=== PATIENT | male | born 1950 | race Caucasian/White ===

== ENCOUNTER 2016-05-12 21:32 | Inpatient (IN) | payer OTHER, MEDICAID ==
[2016-05-12] MEDS ORDERED: IPRATROPIUM/ALBUTEROL 3 ML DEYVIAL IH ONE (22:34)
[2016-05-12 22:41] LABS: ABSOLUTE NRBC COUNT 0.02 10^3/uL (0-0.01); ADD DIFF? YES; ADD MORPH? NO; ATYPICAL LYMPHOCYTE FLAG 10 (0-99); FRAGMENT RBC FLAG 0 (0-99); HEMATOCRIT 40.1 % (40.0-51.0); LIPEMIA HEMOLYSIS FLAG 90 (0-99); MEAN CELL HEMOGLOBIN 30.4 pg (27.9-34.1); MEAN CELL HEMOGLOBIN CONCENTR. 34.9 g/dL (32.4-36.7); MEAN PLATELET VOLUME 9.1 fL (8.7-11.7); NRBC-AUTO% 0.1 % (0.0-0.2); PLATELET CLUMPS FLAG 10 (0-99); PLATELET COUNT 390 10^3/uL (150-400); RED BLOOD CELL COUNT 4.61 10^6/uL (4.40-6.38)
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
[2016-05-12 22:48] LABS: ADD SCAN? NO; LEFT SHIFT FLG 300 (0-99)
[2016-05-12 22:55] LABS: ANION GAP 14 mEq/L (8-16); CALCIUM 8.2 mg/dL (8.5-10.4); CARBON DIOXIDE 22 mEq/l (22-31); CHLORIDE 91 mEq/L (97-110); CREATININE 1.2 mg/dL (0.7-1.3); GLOMERULAR FILTRATION RATE > 60; GLUCOSE 199 mg/dL (70-100); POTASSIUM 4.7 mEq/L (3.5-5.2); SODIUM 127 mEq/L (134-144)
[2016-05-12 23:10] LABS: ALANINE AMINOTRANSFERASE 36 IU/L (21-72); ALBUMIN 3.1 g/dL (3.5-5.0); ALKALINE PHOSPHATASE 132 IU/L (38-126); ASPARTATE AMINOTRANSFERASE 33 IU/L (17-59); BILIRUBIN,TOTAL 0.8 mg/dL (0.1-1.4); BILIRUBIN-CONJUGATED 0.7 mg/dL (0.0-0.5); BILIRUBIN-UNCONJUGATED 0.1 mg/dL (0.0-1.1); ETHANOL SERUM < 10 mg/dL (0-10); MAGNESIUM 2.4 mg/dL (1.6-2.3); TOTAL PROTEIN 6.3 g/dL (6.3-8.2)
--- NOTE | 2016-05-12 23:19 | DX ---
AP and lateral chest x-ray 20 to 35 hours. History: Difficulty breathing. Productive cough. Chest pain. Findings: Heart size and pulmonary vasculature are normal. There is moderate consolidation/pneumonia left lower lobe with patchy infiltrates involving perihilar region bilaterally. There may be small le ft effusion. Osseous structures are intact. Impression: Moderate consolidation/pneumonia left lower lobe with patchy perihilar infiltrates.
[2016-05-12 23:24] LABS: PLATELET ESTIMATE ADEQUATE (ADEQ)
[2016-05-12 23:25] LABS: POLYCHROMASIA 1+
[2016-05-12 23:26] LABS: SCHISTOCYTES 1+
[2016-05-12] MEDS ORDERED: PIPERACILLIN/TAZO 4.5 GM/DEX 100 ML IV ONE (23:34)
[2016-05-12] MEDS ORDERED: oxyCODONE IR 5 MG TAB PO PRN (23:43)
[2016-05-12] MEDS ORDERED: ONDANSETRON 4 MG/2 ML VIAL IVP PRN (23:43)
[2016-05-12] MEDS ORDERED: ONDANSETRON DISINTEGRATING 4 MG TAB PO PRN (23:43)
[2016-05-12] MEDS ORDERED: VANCOMYCIN 1.5 GM in NS 500 ML IV ONE (23:46)
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
[2016-05-13] MEDS: NS 1,000 ML IV SCH ×2 (01:18→12:16)
[2016-05-13] MEDS: AZITHROMYCIN IV 500 MG in D5W 250 ML IV SCH ×3 (01:19→19:40)
[2016-05-13] MEDS: VANCOMYCIN HCL/NORMAL SALINE 250 ML IV SCH ×2 (01:22→13:32)
[2016-05-13] MEDS: guaiFENesin 600 MG TAB.ER PO SCH ×3 (01:31→19:43)
[2016-05-13] MEDS: ACETAMINOPHEN 325 MG TAB PO PRN (01:31)
[2016-05-13 05:45] LABS: ADD DIFF? YES; ADD MORPH? NO; ATYPICAL LYMPHOCYTE FLAG 10 (0-99); FRAGMENT RBC FLAG 0 (0-99); HEMATOCRIT 36.2 % (40.0-51.0); HEMOGLOBIN 12.6 g/dL (13.7-17.5); LIPEMIA HEMOLYSIS FLAG 90 (0-99); MEAN CELL HEMOGLOBIN 30.7 pg (27.9-34.1); MEAN CELL HEMOGLOBIN CONCENTR. 34.8 g/dL (32.4-36.7); MEAN CELL VOLUME 88.3 fL (81.5-99.8); MEAN PLATELET VOLUME 9.1 fL (8.7-11.7); PLATELET CLUMPS FLAG 0 (0-99); PLATELET COUNT 384 10^3/uL (150-400); RED CELL DISTRIBUTION WIDTH 14.1 % (11.5-15.2)
[2016-05-13] MEDS: IPRATROPIUM/ALBUTEROL 3 ML DEYVIAL IH SCH ×5 (05:45→21:42)
[2016-05-13 05:48] LABS: ADD SCAN? NO; LEFT SHIFT FLG 300 (0-99)
[2016-05-13] MEDS: PIPERACILLIN/TAZO 4.5 GM/DEX 100 ML IV SCH ×3 (05:58→21:53)
[2016-05-13 06:42] LABS: ALANINE AMINOTRANSFERASE 33 IU/L (21-72); ALBUMIN 2.4 g/dL (3.5-5.0); ALKALINE PHOSPHATASE 132 IU/L (38-126); ANION GAP 11 mEq/L (8-16); ASPARTATE AMINOTRANSFERASE 37 IU/L (17-59); BILIRUBIN,TOTAL 0.5 mg/dL (0.1-1.4); CALCIUM 7.6 mg/dL (8.5-10.4); CARBON DIOXIDE 24 mEq/l (22-31); CHLORIDE 92 mEq/L (97-110); CREATININE 1.1 mg/dL (0.7-1.3); GLOMERULAR FILTRATION RATE > 60; GLUCOSE 148 mg/dL (70-100); POTASSIUM 4.3 mEq/L (3.5-5.2); SODIUM 127 mEq/L (134-144); TOTAL PROTEIN 5.4 g/dL (6.3-8.2)
[2016-05-13 06:44] LABS: ECHINOCYTES 1+; PLATELET ESTIMATE ADEQUATE (ADEQ); TOXIC GRANULATION PRESENT
[2016-05-13] MEDS: ENOXAPARIN 40 MG/0.4 ML SYR SC SCH (10:02)
--- NOTE | 2016-05-13 20:16 | HOSPPROG ---
Hospitalist Progress Note Assessment/Plan: HCAP Acute Resp Failure, on O2 Sepsis Dehydration, improved Malnutrition, moderate Hyperglycemia Hyponatremia Homelessness L finger recent infection Confusion, improved -IV Abx, IV fluid. -Cultures pending. -Duonebs/O2. -Start CPT - let pt decide which method he likes best. Recommended flutter valve. -ISU. -May add mucolytics if needed. -VTE ppx - Lovenox. -Code status - full. Subjective: Pt c/o persistent cough, productive of sputum. Very congested. denies CP. Has some SOB still. Objective: Vital Signs Temp Pulse Resp BP Pulse Ox 36.7 C 100 17 132/74 H 95 05/13/16 20:02 05/13/16 20:02 05/13/16 20:02 05/13/16 20:02 05/13/16 20:02 Microbiology 05/13/16 06:05 - Final Sputum, Induced/Suctioned Laboratory Results 05/13/16 03:48 05/13/16 03:48 05/12/16 05/13/16 05/14/16 05:59 05:59 05:59 Intake Total 1999 2506 Output Total 500 1350 Balance 1500 1156 General: The patient is an Elderly male who is A&Ox3 and in no acute distress. HEENT: normocephalic, extraocular movements intact, conjunctivae clear. Nares and oral mucosa pink and moist. Neck: trachea midline, no visible masses, no external lesions. CV: +S1/S2, tachy rate and reg rhythm. No murmurs/rubs/gallops. Resp: mildly labored breathing, bilateral +rales, rhonchi worse on L side than R side. No wheeze. Abd: soft and nondistended, bowel sounds present. Nontender to palpation throughout. Musculoskeletal: 4/5 muscle strength bilateral upper and lower extremities. Neuro: cranial nerves II XII grossly intact. Intact gross motor and sensory function. Psych: appropriate mood/affect. Skin: No rash. +scaly healing skin on L index finger w/ a small brown eschar. : +mild L flank tenderness. Heme/lymph: No peripheral edema. - Pending Discharge Pending Discharge Within 24 Hours: No Pending Discharge Within 48 Hours: No ICD10 Worksheet Patient Problems: Problems Problem Status Diagnosed Cellulitis Acute
[2016-05-14] MEDS: VANCOMYCIN HCL/NORMAL SALINE 250 ML IV SCH ×2 (01:17→14:04)
[2016-05-14] MEDS: IPRATROPIUM/ALBUTEROL 3 ML DEYVIAL IH SCH ×4 (05:25→22:11)
[2016-05-14] MEDS: PIPERACILLIN/TAZO 4.5 GM/DEX 100 ML IV SCH ×3 (06:20→21:50)
[2016-05-14] MEDS: ENOXAPARIN 40 MG/0.4 ML SYR SC SCH (08:07)
[2016-05-14] MEDS: guaiFENesin 600 MG TAB.ER PO SCH ×2 (08:07→20:00)
--- NOTE | 2016-05-14 10:17 | HOSPPROG ---
Hospitalist Progress Note Assessment/Plan: * healthcare associated pneumonia * will continue vanc and Zosyn for now * check CBC today *Acute hypoxic Resp Failure * improving *Sepsis - resolved Dehydration, improved Malnutrition, moderate Hyperglycemia Hyponatremia Homelessness L finger recent infection Confusion, improved Subjective: Feels a little better. Still coughing. Having pleuritic chest pain Objective: Vital Signs Temp Pulse Resp BP Pulse Ox 36.6 C 92 18 130/77 H 98 05/14/16 03:17 05/14/16 08:08 05/14/16 08:08 05/14/16 08:08 05/14/16 08:08 Microbiology 05/13/16 06:05 - Final Sputum, Induced/Suctioned Laboratory Results 05/13/16 03:48 05/13/16 03:48 05/13/16 05/14/16 05/15/16 05:59 05:59 05:59 Intake Total 2000 4006 Output Total 500 1650 Balance 1500 2356 - Physical Exam Constitutional: no apparent distress, appears nourished, not in pain Eyes: anicteric sclera, EOMI Ears, Nose, Mouth, Throat: moist mucous membranes, hearing normal, ears appear normal Cardiovascular: regular rate and rhythym, no murmur, rub, or gallop Respiratory: no respiratory distress, rhonchi ( left lung) Gastrointestinal: normoactive bowel sounds, soft, non-tender abdomen, no palpable masses Skin: warm Psychiatric: interacting appropriately, not anxious, not encephalopathic, thought process linear ICD10 Worksheet Patient Problems: Problems Problem Status Diagnosed Cellulitis Acute
[2016-05-14 11:41] LABS: ADD DIFF? YES; ADD MORPH? NO; ATYPICAL LYMPHOCYTE FLAG 40 (0-99); FRAGMENT RBC FLAG 0 (0-99); HEMATOCRIT 33.2 % (40.0-51.0); HEMOGLOBIN 11.5 g/dL (13.7-17.5); LIPEMIA HEMOLYSIS FLAG 90 (0-99); MEAN CELL HEMOGLOBIN 30.7 pg (27.9-34.1); MEAN CELL HEMOGLOBIN CONCENTR. 34.6 g/dL (32.4-36.7); MEAN CELL VOLUME 88.8 fL (81.5-99.8); MEAN PLATELET VOLUME 8.6 fL (8.7-11.7); PLATELET CLUMPS FLAG 0 (0-99); PLATELET COUNT 428 10^3/uL (150-400); RED BLOOD CELL COUNT 3.74 10^6/uL (4.40-6.38); RED CELL DISTRIBUTION WIDTH 14.4 % (11.5-15.2)
[2016-05-14 11:48] LABS: LEFT SHIFT FLG 110 (0-99)
[2016-05-14 12:13] LABS: ANION GAP 6 mEq/L (8-16); CARBON DIOXIDE 29 mEq/l (22-31); CHLORIDE 99 mEq/L (97-110); CREATININE 0.7 mg/dL (0.7-1.3); GLOMERULAR FILTRATION RATE > 60; GLUCOSE 121 mg/dL (70-100); POTASSIUM 4.2 mEq/L (3.5-5.2); SODIUM 134 mEq/L (134-144)
[2016-05-14 12:55] LABS: PLATELET ESTIMATE INCREASED (ADEQ)
[2016-05-14] MEDS: NS 1,000 ML IV SCH (13:17)
[2016-05-14] MEDS: AZITHROMYCIN IV 500 MG in D5W 250 ML IV SCH (19:59)
[2016-05-15] MEDS: VANCOMYCIN HCL/NORMAL SALINE 250 ML IV SCH (04:26)
[2016-05-15 05:18] LABS: ADD DIFF? YES; ADD MORPH? NO; ADD SCAN? NO; ATYPICAL LYMPHOCYTE FLAG 70 (0-99); FRAGMENT RBC FLAG 40 (0-99); HEMATOCRIT 31.5 % (40.0-51.0); HEMOGLOBIN 10.7 g/dL (13.7-17.5); LEFT SHIFT FLG 90 (0-99); LIPEMIA HEMOLYSIS FLAG 90 (0-99); MEAN CELL HEMOGLOBIN 30.6 pg (27.9-34.1); MEAN PLATELET VOLUME 8.5 fL (8.7-11.7); PLATELET CLUMPS FLAG 0 (0-99); PLATELET COUNT 555 10^3/uL (150-400); RED CELL DISTRIBUTION WIDTH 14.6 % (11.5-15.2)
[2016-05-15 05:28] LABS: ANION GAP 6 mEq/L (8-16); CALCIUM 7.5 mg/dL (8.5-10.4); CARBON DIOXIDE 31 mEq/l (22-31); CHLORIDE 101 mEq/L (97-110); CREATININE 0.7 mg/dL (0.7-1.3); GLOMERULAR FILTRATION RATE > 60; GLUCOSE 113 mg/dL (70-100); SODIUM 138 mEq/L (134-144)
[2016-05-15] MEDS: IPRATROPIUM/ALBUTEROL 3 ML DEYVIAL IH SCH ×4 (05:41→23:05)
[2016-05-15] MEDS: PIPERACILLIN/TAZO 4.5 GM/DEX 100 ML IV SCH (06:24)
[2016-05-15 06:46] LABS: PLATELET ESTIMATE INCREASED (ADEQ)
[2016-05-15] MEDS: ENOXAPARIN 40 MG/0.4 ML SYR SC SCH (08:06)
[2016-05-15] MEDS: guaiFENesin 600 MG TAB.ER PO SCH ×2 (08:06→20:14)
[2016-05-15] MEDS: AZITHROMYCIN 250 MG TAB PO SCH (13:33)
--- NOTE | 2016-05-15 13:47 | HOSPPROG ---
Hospitalist Progress Note Assessment/Plan: * healthcare associated pneumonia * compared out antibiotics ceftriaxone and azithromycin * recheck chest x-ray tomorrow *Acute hypoxic Resp Failure * still requiring large amount of oxygen *Sepsis - resolved Dehydration, improved Malnutrition, moderate Hyperglycemia Hyponatremia Homelessness L finger recent infection Confusion, improved Subjective: slow improvement. productive cough with purulent sputum. some left- sided pleuritic chest pain Objective: Vital Signs Temp Pulse Resp BP Pulse Ox 36.9 C 98 22 H 138/80 H 82 L 05/15/16 11:54 05/15/16 12:22 05/15/16 12:22 05/15/16 11:54 05/15/16 12:22 Microbiology 05/13/16 06:05 - Final Sputum, Induced/Suctioned Sputum Culture - Final Laboratory Results 05/15/16 04:39 05/15/16 04:39 05/14/16 05/15/16 05/16/16 05:59 05:59 05:59 Intake Total 4006 2050 Output Total 1650 2800 Balance 2356 -750 - Physical Exam Constitutional: no apparent distress, appears nourished, not in pain Eyes: anicteric sclera, EOMI Ears, Nose, Mouth, Throat: moist mucous membranes, hearing normal, ears appear normal Respiratory: no respiratory distress, rhonchi ( left base) Neurologic: AAOx3 Psychiatric: interacting appropriately, not anxious, not encephalopathic, thought process linear ICD10 Worksheet Patient Problems: Problems Problem Status Diagnosed Cellulitis Acute
[2016-05-16] MEDS: IPRATROPIUM/ALBUTEROL 3 ML DEYVIAL IH SCH ×4 (05:56→21:59)
[2016-05-16 06:38] LABS: ADD DIFF? YES; ADD MORPH? NO; ATYPICAL LYMPHOCYTE FLAG 50 (0-99); FRAGMENT RBC FLAG 0 (0-99); HEMATOCRIT 31.5 % (40.0-51.0); HEMOGLOBIN 10.9 g/dL (13.7-17.5); LIPEMIA HEMOLYSIS FLAG 90 (0-99); MEAN CELL HEMOGLOBIN 30.4 pg (27.9-34.1); MEAN CELL HEMOGLOBIN CONCENTR. 34.6 g/dL (32.4-36.7); MEAN PLATELET VOLUME 8.4 fL (8.7-11.7); PLATELET CLUMPS FLAG 20 (0-99); PLATELET COUNT 546 10^3/uL (150-400); RED BLOOD CELL COUNT 3.58 10^6/uL (4.40-6.38); RED CELL DISTRIBUTION WIDTH 14.3 % (11.5-15.2)
[2016-05-16 06:39] LABS: ADD SCAN? NO; LEFT SHIFT FLG 110 (0-99)
[2016-05-16 06:46] LABS: ANION GAP 8 mEq/L (8-16); CALCIUM 8.4 mg/dL (8.5-10.4); CARBON DIOXIDE 33 mEq/l (22-31); CHLORIDE 97 mEq/L (97-110); CREATININE 0.7 mg/dL (0.7-1.3); GLOMERULAR FILTRATION RATE > 60; GLUCOSE 98 mg/dL (70-100); POTASSIUM 4.2 mEq/L (3.5-5.2); SODIUM 138 mEq/L (134-144)
[2016-05-16 07:42] LABS: PLATELET ESTIMATE INCREASED (ADEQ)
[2016-05-16 07:43] LABS: MACROCYTES 1+
[2016-05-16] MEDS: guaiFENesin 600 MG TAB.ER PO SCH ×2 (08:36→21:22)
[2016-05-16] MEDS: AZITHROMYCIN 250 MG TAB PO SCH (08:36)
[2016-05-16] MEDS: ENOXAPARIN 40 MG/0.4 ML SYR SC SCH (08:36)
--- NOTE | 2016-05-16 08:53 | DX ---
Single Frontal Chest May 16, 2016 Indication: Follow up pneumonia. Comparison: May 12, 2016. Findings: Heart size remains normal. There is some interval progression of the moderate consolidative changes of the left lower lobe compared to 4 days prior. Impression: Evolving left lower lobe infiltrate slightly worse than 4 days prior.
--- NOTE | 2016-05-16 16:44 | HOSPPROG ---
Hospitalist Progress Note Assessment/Plan: * healthcare associated pneumonia * continue ceftriaxone and azithromycin, had been on Zosyn and vancomycin but switched yesterday * chest x-ray shows stable infiltrates *Acute hypoxic Resp Failure * still requiring large amount of oxygen * will need this to wean for discharge * he is homeless *Sepsis - resolved Dehydration, improved Malnutrition, moderate Hyperglycemia Hyponatremia Homelessness L finger recent infection Confusion, improved Subjective: Breathing feels better. Objective: Vital Signs Temp Pulse Resp BP Pulse Ox 36.8 C 100 18 155/89 H 92 05/16/16 12:40 05/16/16 12:40 05/16/16 12:40 05/16/16 12:40 05/16/16 12:40 Laboratory Results 05/16/16 05:35 05/16/16 05:35 05/15/16 05/16/16 05/17/16 05:59 05:59 05:59 Intake Total 2049 Output Total 2800 450 1300 Balance -750 -450 -1300 - Physical Exam Constitutional: no apparent distress, appears nourished, not in pain Eyes: anicteric sclera, EOMI Ears, Nose, Mouth, Throat: moist mucous membranes, hearing normal Cardiovascular: regular rate and rhythym, no murmur, rub, or gallop Respiratory: no respiratory distress, expiratory wheeze, inspiratory crackles ( Left base) Gastrointestinal: normoactive bowel sounds, soft, non-tender abdomen, no palpable masses Neurologic: AAOx3 Psychiatric: interacting appropriately, not anxious, not encephalopathic, thought process linear ICD10 Worksheet Patient Problems: Problems Problem Status Diagnosed Cellulitis Acute
[2016-05-16] MEDS: TEMAZEPAM 15 MG CAP PO PRN (21:22)
[2016-05-17] MEDS: IPRATROPIUM/ALBUTEROL 3 ML DEYVIAL IH SCH ×3 (05:22→17:46)
[2016-05-17] MEDS: AZITHROMYCIN 250 MG TAB PO SCH (08:11)
[2016-05-17] MEDS: ENOXAPARIN 40 MG/0.4 ML SYR SC SCH (08:12)
[2016-05-17] MEDS: guaiFENesin 600 MG TAB.ER PO SCH ×2 (08:12→19:43)
[2016-05-17] MEDS: ACETAMINOPHEN 325 MG TAB PO PRN (08:12)
--- NOTE | 2016-05-17 09:51 | HOSPPROG ---
Hospitalist Progress Note Assessment/Plan: * healthcare associated pneumonia * continue ceftriaxone and azithromycin, had been on Zosyn and vancomycin but switched 05/15 * chest x-ray which i personally reviewed and interpreted shows worsening LLL infiltrates *Acute hypoxic Resp Failure (not improving) * still requiring large amount of oxygen * will need this to wean for discharge * he is homeless * will consider repeating cxr on 05/18 if not improving to eval for developing effusion *Sepsis - resolved Dehydration, improved Malnutrition, moderate Hyperglycemia Hyponatremia Homelessness L finger recent infection Confusion, improved Subjective: continues to have sob and cough. not feeling well Objective: Vital Signs Temp Pulse Resp BP Pulse Ox 36.6 C 98 20 130/80 H 84 L 05/17/16 08:20 05/17/16 08:20 05/17/16 08:20 05/17/16 08:20 05/17/16 08:20 Laboratory Results 05/16/16 05:35 05/16/16 05:35 05/16/16 05/17/16 05/18/16 05:59 05:59 05:59 Intake Total 1250 Output Total 450 2890 Balance -450 -1640 gen nad pulm rochi left lower lobe with dullness to percussion abd soft cv rrr ICD10 Worksheet Patient Problems: Problems Problem Status Diagnosed Cellulitis Acute
[2016-05-17] MEDS: IBUPROFEN 600 MG TAB PO PRN (19:43)
[2016-05-18] MEDS: IPRATROPIUM/ALBUTEROL 3 ML DEYVIAL IH SCH ×5 (00:04→22:38)
[2016-05-18] MEDS: ENOXAPARIN 40 MG/0.4 ML SYR SC SCH (08:37)
[2016-05-18] MEDS: guaiFENesin 600 MG TAB.ER PO SCH ×2 (08:38→21:08)
[2016-05-18] MEDS: AZITHROMYCIN 250 MG TAB PO SCH (08:38)
--- NOTE | 2016-05-18 10:50 | HOSPPROG ---
Hospitalist Progress Note Assessment/Plan: * healthcare associated pneumonia (improving) bust still req supplemental o2 on abx d#6 * continue ceftriaxone and azithromycin, had been on Zosyn and vancomycin but switched 05/15 *Acute hypoxic Resp Failure (not improving) * still requiring large amount of oxygen * will need this to wean for discharge * he is homeless *Sepsis - resolved Dehydration, improved Malnutrition, moderate L finger recent infection Confusion, improved dispo: will dc abx tomorrow Subjective: improving work of breathing. still with sob. improving productive cough. no fever or chills Objective: Vital Signs Temp Pulse Resp BP Pulse Ox 36.8 C 93 18 121/69 H 91 L 05/18/16 08:00 05/18/16 08:00 05/18/16 08:00 05/18/16 08:00 05/18/16 08:00 Laboratory Results 05/16/16 05:35 05/16/16 05:35 05/17/16 05/18/16 05/19/16 05:59 05:59 05:59 Intake Total 1250 750 Output Total 2890 1200 400 Balance -1640 -450 -400 - Physical Exam Constitutional: no apparent distress, appears nourished, not in pain Cardiovascular: regular rate and rhythym, no murmur, rub, or gallop Respiratory: no respiratory distress, no rales or rhonchi, rhonchi (left sided) , No dullness to percussion Gastrointestinal: normoactive bowel sounds, soft, non-tender abdomen, no palpable masses Neurologic: AAOx3, sensation intact bilaterally ICD10 Worksheet Patient Problems: Problems Problem Status Diagnosed Cellulitis Acute
[2016-05-18 11:16] LABS: ADD DIFF? YES; ADD MORPH? NO; ATYPICAL LYMPHOCYTE FLAG 40 (0-99); FRAGMENT RBC FLAG 0 (0-99); HEMATOCRIT 35.6 % (40.0-51.0); HEMOGLOBIN 12.1 g/dL (13.7-17.5); LIPEMIA HEMOLYSIS FLAG 90 (0-99); MEAN CELL HEMOGLOBIN 30.3 pg (27.9-34.1); MEAN CELL VOLUME 89.2 fL (81.5-99.8); MEAN PLATELET VOLUME 8.2 fL (8.7-11.7); PLATELET CLUMPS FLAG 20 (0-99); PLATELET COUNT 629 10^3/uL (150-400); RED BLOOD CELL COUNT 3.99 10^6/uL (4.40-6.38); RED CELL DISTRIBUTION WIDTH 14.2 % (11.5-15.2)
[2016-05-18 11:17] LABS: ADD SCAN? NO; LEFT SHIFT FLG 140 (0-99)
[2016-05-18 12:08] LABS: PLATELET ESTIMATE INCREASED (ADEQ); POLYCHROMASIA 1+; TOXIC GRANULATION PRESENT
[2016-05-18] MEDS: IBUPROFEN 600 MG TAB PO PRN (21:08)
[2016-05-18] MEDS: TEMAZEPAM 15 MG CAP PO PRN (21:08)
[2016-05-19] MEDS: IPRATROPIUM/ALBUTEROL 3 ML DEYVIAL IH SCH ×4 (06:01→23:31)
[2016-05-19] MEDS: guaiFENesin 600 MG TAB.ER PO SCH ×2 (09:22→21:31)
[2016-05-19] MEDS: ENOXAPARIN 40 MG/0.4 ML SYR SC SCH (09:22)
[2016-05-19] MEDS: AZITHROMYCIN 250 MG TAB PO SCH (09:22)
--- NOTE | 2016-05-19 10:30 | HOSPPROG ---
Hospitalist Progress Note Assessment/Plan: * healthcare associated pneumonia (improving) but still req supplemental o2 * dc antibiotics * repeat cxr to eval for effusion given persistent hypoxemia *Acute hypoxic Resp Failure (not improving) * still requiring large amount of oxygen * will need this to wean for discharge * he is homeless *Sepsis - resolved Dehydration, improved Malnutrition, moderate L finger recent infection Confusion, improved dispo: dc with home o2 once arrangements are in place Subjective: still with shortness of breath. denies fever or chills Objective: Vital Signs Temp Pulse Resp BP Pulse Ox 36.3 C 94 17 107/79 95 05/19/16 08:01 05/19/16 08:01 05/19/16 08:01 05/19/16 08:01 05/19/16 08:01 Laboratory Results 05/18/16 11:07 05/16/16 05:35 05/18/16 05/19/16 05/20/16 05:59 05:59 05:59 Intake Total 750 2200 Output Total 1200 1200 Balance -450 1000 - Physical Exam Constitutional: no apparent distress, appears nourished, not in pain Cardiovascular: regular rate and rhythym, no murmur, rub, or gallop Respiratory: no respiratory distress, rhonchi (left lung field), No expiratory wheeze, No dullness to percussion Gastrointestinal: normoactive bowel sounds, soft, non-tender abdomen, no palpable masses ICD10 Worksheet Patient Problems: Problems Problem Status Diagnosed Cellulitis Acute
--- NOTE | 2016-05-19 12:21 | DX ---
Portable Chest May 19, 2016 at 1143 Hours History: Pneumonia. Hypoxia. Comparison: May 16, 2016. Findings: Decreasing left lower lobe alveolar opacity consistent with improvement in left lower lobe pneumonia. Right lung is clear. Heart is normal in size. No pleural effusion or pneumothorax. Impression: Improving left lower lobe pneumonia.
[2016-05-19] MEDS: IBUPROFEN 600 MG TAB PO PRN (12:45)
[2016-05-19] MEDS: TEMAZEPAM 15 MG CAP PO PRN (21:30)
[2016-05-20] MEDS: IPRATROPIUM/ALBUTEROL 3 ML DEYVIAL IH SCH ×2 (06:23→12:18)
[2016-05-20] MEDS: ENOXAPARIN 40 MG/0.4 ML SYR SC SCH (08:11)
[2016-05-20] MEDS: guaiFENesin 600 MG TAB.ER PO SCH (08:11)
[2016-05-20] MEDS: IBUPROFEN 600 MG TAB PO PRN (08:13)
[2016-05-20 11:15] VITALS: BP 102/66; TEMP 97.3
[2016-05-20 12:28] VITALS: PULSE 91; RESP 16; O2SAT 96
--- NOTE | 2016-05-20 12:53 | PDIAF ---
- Diagnosis Diagnosis: pneumonia Code Status: Full Code - Medication Management Discharge Medications: Medications to Continue on Transfer Acetaminophen [Tylenol 325mg (*)] 650 mg PO Q4HRS PRN #0 tab 04/16/16 [Last Taken Unknown] Ibuprofen [Motrin (*)] 600 mg PO Q6HRS PRN #0 tab 04/16/16 [Last Taken Unknown] Acetaminophen [Tylenol 325mg (*)] 650 mg PO Q4HRS PRN #0 tab 05/20/16 [Last Taken Unknown] guaiFENesin [Mucinex 600 MG (*)] 1,200 mg PO BID #14 tab.er 05/20/16 [Last Taken Unknown] Discharge Medications: Refer to the Discharge Home Medication list for PRN reason. - Orders Services needed: Registered Nurse, Physical Therapy, Occupational Therapy - Follow Up Care Current Providers and Referrals: [place],. [Primary Care Provider] -
--- NOTE | 2016-05-20 14:46 | GDS ---
[f rep st] DISCHARGE SUMMARY DISCHARGE DIAGNOSES: 1. Healthcare-associated pneumonia. 2. Resolved sepsis. 3. Acute respiratory failure due to above. 4. Homelessness. 5. Resolved delirium. 6. Moderate malnutrition. HOSPITAL COURSE AND STAY BY PROBLEM: Healthcare-associated pneumonia: The patient was admitted to [facility] where he was initially treated for healthcare-associated pneumonia with vancomycin and Zo syn. These antibiotics were changed to ceftriaxone and azithromycin on 05/16/2016. Over the past fe w days, the patient's symptoms of pneumonia have improved. He has been afebrile. He has continued t o require oxygen. A repeat chest x-ray done on 05/19/2016 showed improvement of his left lower lobe infiltrate without effusion. On day of discharge, the patient has finished an 8-day course of IV antibiotics and does not appear t o be infected at this point. He is going to require further nursing care, given his homeless status and persistent requirement for supplemental oxygen. DISCHARGE PHYSICAL EXAM: VITAL SIGNS: Blood pressure 102/66, pulse of 92, respiratory rate 20, O2 s aturation 90% on 4 L, temperature afebrile. GENERAL: In no acute distress. LUNGS: Improving rhonc hi left base. CURRENT LABS AND STUDIES: Chest x-ray done on 05/19/2016: Refer to report. DISCHARGE MEDICATIONS: Please refer to transfer summary in [facility]. DISCHARGE INSTRUCTIONS: The patient will be transferred to a senior living facility for further re habilitation. /[id number]/MODL
== END 2016-05-20 14:32 | DRG 871 ==
LOC: EDUNIT# → F2W 05-13 00:43 → F1N 05-15 18:17
PROVIDERS: ADMIT Student in an Organized Health Care Education/Training Program; ATTEND Student in an Organized Health Care Education/Training Program
DX: A41.9 Sepsis, unspecified organism (principal); J18.8 Other pneumonia, unspecified organism; J96.01 Acute respiratory failure with hypoxia; E44.0 Moderate protein-calorie malnutrition; E87.1 Hypo-osmolality and hyponatremia; M10.9 Gout, unspecified; F20.9 Schizophrenia, unspecified; E86.0 Dehydration; Z59.0 Homelessness; Z72.0 Tobacco use
CPT/HCPCS: 97001-GP; 97116-GP; 97530-GP; G0477; G0480; G8978-GP-CJ; G8979-GP-CI; J0456; J0696; J1650; J2543; J3370

== ENCOUNTER 2018-07-24 15:11 | Emergency (ER) | payer MEDICAID, OTHER ==
--- NOTE | 2018-07-24 15:32 | EDPHY ---
General - History Smoking Status: Current some day smoker Time Seen by Provider: 07/24/18 15:32 Narrative: CLINICAL IMPRESSION: Multiple open wounds of the right lower extremity, cellulitis ASSESSMENT/PLAN: Patient is a 67-year-old male who is currently homeless who presents for concerns of wound infection. Patient is afebrile and not toxic appearing, no acute distress. Physical exam reveals generalized right lower extremity edema with multiple open wounds and associated cellulitis. He has had no systemic symptoms, his vital signs were reviewed and I do not suspect sepsis. Ultrasound was ordered and still pending for further evaluation of DVT. There was no evidence of systemic infection, abscess, necrotizing skin infection or deep space infection. Case management was consulted, they also evaluated this patient. His tetanus status was updated in the emergency department. He was given his 1st dose of Bactrim and will continue for the next 10 days. He was given Benadryl for his pruritic rash. There were no findings to suggest anaphylaxis, SJS/TENS, Harleen or scabies. Dispo still pending at this time, Dr. Canada will resume care of this patient. DIFFERENTIAL DX: Differential diagnosis including but not limited to and in no particular order cellulitis, venous stasis, stasis ulcer, DVT, necrotizing skin infection, deep space infection ED COURSE: 1549: Case discussed with Dr. Canada. 1557: Dr. Canada will resume care of this patient at this time. Ultrasound is still pending. Patient also needs to be seen by case management. CHIEF COMPLAINT: Right lower extremity open wounds and pain HPI: Patient is a 67-year-old male who is currently homeless living in the longterm who presents to the emergency department with multiple right lower extremity wounds, redness and swelling. Patient reports over the last 3 months he has developed some wounds on his right lower extremity, he feels that they are getting better however they are not healing. Recently has noted some associated redness and new onset right lower extremity edema. He does report that they are painful in nature. He denies any traumatic injury. He denies any fevers, chest pain or shortness of breath. Appetite has been normal. He has been trying to clean the areas as much as he can. He also complains of a rash that he has had for the last several months on his torso and upper legs. It is very itchy in nature. He has not tried anything for the itching. He was established with the wound clinic several years prior for a hand infection, went there prior to arrival and was sent here for further evaluation. PMH: Head injury Pertinent Past Surgical History: Right knee surgery, had surgery from hockey injury Family History: Noncontributory Social History: Occasional smoker, occasional marijuana, denies alcohol REVIEW OF SYSTEMS: All other systems negative Constitutional: Chilled. No fever, appetite change. Eyes: No discharge, vision change ENT: No sore throat, congestion, ear pain. Cardiovascular: No chest pain, no palpitations. Respiratory: No cough, no shortness of breath. Gastrointestinal: No abdominal pain, no vomiting, diarrhea. Genitourinary: No hematuria, dysuria, flank pain, pelvic pain Musculoskeletal: Right lower extremity pain, swelling and open wounds. Skin: Open wounds right lower extremity. Neurological: No headache, dizziness, weakness. PHYSICAL EXAM: General Appearance: Unkempt, well-appearing and in no acute distress. HENT: Normocephalic, atraumatic. Bilateral external ears are normal. Bilateral tympanic membranes are normal with pearly natarajan reflex. Nares are clear, mucosa is pink. Oropharynx is clear, uvula is midline. There is no tonsillar enlargement or exudate. Poor dentition. Eyes: PERRLA, EOMI intact. Conjunctiva pink, no pallor or injection Neck: Supple, nontender, no lymphadenopathy, no midline pain, FROM, no meningismus. Respiratory: There are no retractions, lungs are clear to auscultation. Cardiac: Regular rate and rhythm, no murmurs or gallops. Gastrointestinal: Abdomen is soft, nontender, bowel sounds normal, no masses/ hernia, no rigidity, guarding or focal peritoneal findings. Neurological: Alert and oriented x 3, CN 2-12 grossly intact, normal gait no ataxia, DTR's intact, normal sensation and strength Skin: Warm, dry. Patient with mildly raised, hyperemic pruritic rash along torso and upper legs. There is no abdominal rash, inter digital or intertriginous rash. Upper Extremities: Intact distal pulses, Full range of motion intact, no tenderness, no ecchymosis or edema Lower Extremities: Left lower extremity with notable varicosities, no evidence of venous stasis or open wounds. Intact distal pulses, No edema, No tenderness , No cyanosis, full range of motion intact. Right lower extremity with a large varicosities, multiple (3) open wounds on the anterior aspect distal to the knee. Largest approximately 2 cm on the anterior mid paitño with ulceration. All 3 wounds have surrounding erythema and are tender to palpation. There is notable right lower extremity edema and calf tenderness on the right side. He has an additional open wound on the posterior right thigh. Psychiatric: Patient is oriented X 3, there is no agitation. MEDICAL DECISION MAKING: Patient was seen independently. Secondary supervising physician at time of evaluation was Dr. Canada. Diagnosis: Open wounds, right lower extremity cellulitis. New, requires workup Summary: See Assessment and Plan for summary of ED visit Clinical lab tests: ordered / reviewed. Independent visualization of images, tracing, or specimens: Yes. Decision to obtain medical records or history from someone other than the patient: No Review / Summarize previous medical records: Yes Discussed patient with another provider: Yes, Dr. Canada Patient Progress: Stable, dispo pending. (Christina Valles) Medical Decision Making: PHYSICIAN DOCUMENTATION: The patient was evaluated and managed by the Physician Horse Shoer. My co- signature indicates that I have reviewed this chart and I agree with the findings and plan of care as documented. I am the secondary supervising physician. (Rodolfo Canada) - Diagnostics Imaging Results: Imaging Impressions Extremity Venous Study 07/24/18 15:38 Impression: 1. Negative for right lower extremity DVT. 2. Superficial varicosity in the popliteal fossa on the right measuring 1.0 cm with slowed flow. Efforts to contact ordering provider unsuccessful. - Objective Vital Signs: Initial Vital Signs Temperature (C) 36.7 C 07/24/18 15:23 Heart Rate 93 07/24/18 15:23 Respiratory Rate 16 07/24/18 15:23 Blood Pressure 155/76 H 07/24/18 15:23 O2 Sat (%) 95 07/24/18 15:23 O2 Delivery Mode Room Air Allergies/Adverse Reactions: No Known Allergies Allergy (Verified 05/12/16 21:46) Home Medications: Medication Instructions Recorded Acetaminophen [Tylenol 325mg (*)] 650 mg PO Q4HRS PRN #0 tab 04/16/16 Ibuprofen [Motrin (*)] 600 mg PO Q6HRS PRN #0 tab 04/16/16 Acetaminophen [Tylenol 325mg (*)] 650 mg PO Q4HRS PRN #0 tab 05/20/16 guaiFENesin [Mucinex 600 MG (*)] 1,200 mg PO BID #14 tab.er 05/20/16 Sulfamethox/Tmp 800/160 mg 1 tab PO BID #20 tab 07/24/18 [Bactrim Ds] Medications Given: Discontinued Medications Diphenhydramine HCl (Benadryl Oral Liquid) 50 mg PO EDNOW ONE Stop: 07/24/18 16:03 Last Admin: 07/24/18 16:11 Dose: 50 mg Diphtheria/Tetanus/Acell Pertussis (Boostrix) 0.5 ml IM .ONCE ONE Stop: 07/24/18 16:02 Last Admin: 07/24/18 16:11 Dose: 0.5 ml Trimethoprim/Sulfamethoxazole (Bactrim Ds) 1 ea PO EDNOW ONE PRN Reason: Protocol Stop: 07/24/18 16:02 Last Admin: 07/24/18 16:12 Dose: 1 ea Departure - Departure Disposition: Home, Routine, Self-Care Clinical Impression: Open wound, lower leg Qualifiers: Encounter type: initial encounter Laterality: right Qualified Code(s): S81.801A - Unspecified open wound, right lower leg, initial encounter Cellulitis Qualifiers: Site of cellulitis: extremity Site of cellulitis of extremity: lower extremity Laterality: right Qualified Code(s): L03.115 - Cellulitis of right lower limb Condition: Good Instructions: Cellulitis (ED) Additional Instructions: DISCHARGE INSTRUCTIONS FROM YOUR DOCTOR Thank you for visiting our emergency department today. Please keep in mind that discharge from the emergency department does not mean that there is nothing wrong - it simply means that we have not identified an emergency condition that requires further evaluation or treatment in the hospital. You should always plan to follow up with primary care for re-evaluation of your condition in the next 2-3 days. Rest, drink plenty of fluids, healthy foods, all to to help your immune system fight the infection and to help the healing process. Keep the wound area clean. Wear loose clothing. Clean the wound areas with soap and water, at least twice daily, then apply antibiotic ointment and a dressing. Change the dressings at least twice daily and/or when soiled. Apply clean, warm compresses as much as possible. Elevate the affected limb as much as possible above the level of the heart. Bactrim DS (antibiotic) twice daily as prescribed for the next 10 days. Consume yogurt and take over the counter probiotics to help prevent diarrhea from the antibiotics. For pain control: You may take Tylenol, I recommend 500-1000 mg every 6-8 hours as needed. Take with food and a full glass of water. Stop taking if this is upsetting her stomach. Do not exceed 4000 mg in a 24 hr period. You may also take ibuprofen, recommend 400 mg every 6 hr. Take with food and a full glass of water. Stop taking if this upsets her stomach. Do not exceed 2400 mg in a 24 hr period. Continue your regular medications as prescribed. Schedule a follow-up appointment with your primary care physician in the next 24 -48 hours for a wound check to ensure you are healing and don't require further antibiotics or intervention. Return for persistent or recurrent fever, vomiting, inability to tolerate the antibiotic(s) by mouth, redness, swelling, warmth, or streaking around the wound , new lesions, extremity swelling, pain out of proportion to what you would expect for this infection, chest or abdominal pain, vomiting, throat tightness, facial swelling, difficulty breathing or swallowing, sores in the mouth or the eyes, or for any other new, worsening or worrisome symptoms. People present with illnesses and injuries in different ways, and it is always possible that we have missed something. You may always return for re-evaluation if symptoms worsen or if they are not improving or if you develop new/different symptoms. Again, thank you for choosing our emergency department. We hope that you feel better. [facility] has walk-in appointments for the homeless at the following days/locations. No appointment is needed. You have an appt. tomorrow with [facility] on [address] [place] [address] in [place]. Check in at 2:30 pm at the green [facility]. Referrals: [facility],. [Clinic] - As per Instructions Prescriptions: Sulfamethox/Tmp 800/160 mg [Bactrim Ds] 1 tab PO BID #20 tab
[2018-07-24] MEDS ORDERED: SULFAMETHOX/TMP 800/160 MG 1 TAB PO ONE (16:01)
[2018-07-24] MEDS ORDERED: TDAP ADULT 0.5 ML INJ (BOOSTRIX) IM ONE (16:01)
[2018-07-24] MEDS ORDERED: diphenhydrAMINE 12.5 MG/5 ML UDCUP PO ONE (16:02)
[2018-07-24 16:52] VITALS: BP 145/72
--- NOTE | 2018-07-24 16:55 | ASMTCMCOM ---
CM Note CM Note Notes: Patient is a 67 year old homeless male and is staying at [facility]. Patient tells this CM that he needs to get his TB test before he can be "assigned to a senior care bed". He is aware that he needs to go to [facility] to do this and was planning to stop in during drop in hours. It was brought to this CM attention that patient will need further evaluation of his RLL wounds and cellulitis. This CM noticed three obvious, mariam sized wounds with some scabbing-one on his LLE and 2 on his RLL. I have contacted Lyric (homeless outreach RN) and scheduled an ED follow up appointment fro patient tomorrow at [facility] at 2:30 PM. I informed Lyric of patient's need for a TB test (which she acknowledges as patient is in their system), and further evaluation of patient's wounds/care. I have dressed these wounds with Allevyn and Mepilex dressings and instructed patient to leave them in place until his appointment at [facility] tomorrow afternoon. Patient verbalizes understanding and states that he will be able to fill his Bactrim prescription tonight as well. ED report and this CM assessment faxed to Lyric at [facility] at this time Date Signed: 07/24/2018 04:54 PM Electronically Signed By:Alison Rosales RN
== END 2018-07-24 16:52 | disposition home or self-care (01) ==
DX: S81.801A Unspecified open wound, right lower leg, initial encounter (principal); L03.115 Cellulitis of right lower limb; I83.891 Varicose veins of right lower extremity with other complications; Z23 Encounter for immunization; X58.XXXA Exposure to other specified factors, initial encounter; Y92.9 Unspecified place or not applicable; Y99.9 Unspecified external cause status; Y93.9 Activity, unspecified; Z59.0 Homelessness